=== PATIENT | female | born 2000 | race African-American/Black ===

== ENCOUNTER 2023-12-11 17:25 | Inpatient (IN) | payer OTHER ==
[2023-12-11] MEDS: ELECTROLYTE-148 SOLN 1,000 ML IV SCH (17:45)
[2023-12-11 18:16] LABS: BASO % 0.3 % (0-2.0); HEMATOCRIT 34.7 % (32.4-45.2); HEMOGLOBIN 11.6 GM/dL (10.7-15.3); LYMPH % 12.3 % (8-40); MCH 29.1 pg (25.7-33.7); MCHC 33.5 g/dl (32.0-36.0); MEAN PLT VOLUME 8.3 fl (7.5-11.1); MONO % 4.9 % (3.8-10.2); NEUT % 82.5 % (42.8-82.8); PLATELET COUNT 358 10^3/uL (134-434); RBC 3.99 M/mm3 (3.60-5.2); RDW 16.2 % (11.6-15.6); WHITE BLOOD COUNT 10.2 K/mm3 (4.0-10.0)
[2023-12-11 18:24] VITALS: BMI 38.6
[2023-12-11 18:24] LABS: INR 0.97 (0.83-1.09)
[2023-12-11 18:25] LABS: POTASSIUM 3.5 mmol/L (3.5-5.1)
[2023-12-11 18:26] LABS: ACTIVATED PTT 25.4 SECONDS (25.2-36.5)
[2023-12-11 18:28] LABS: BLOOD UREA NITROGEN 4.2 mg/dL (7-18)
[2023-12-11 18:31] LABS: CREATININE 0.7 mg/dL (0.55-1.3)
[2023-12-11] MEDS ORDERED: OXYTOCIN 20 UNITS in 0.9% NS 20 UNIT/1,000 ML INFUS.BAG IV ONE (19:11)
[2023-12-11] MEDS ORDERED: LIDOCAINE HCL 1% PRESERVATIVE FREE - 30ML VIAL ONE (19:12)
[2023-12-11 19:40] LABS: HIV INTERPRETATION NEGATIVE (NEGATIVE)
[2023-12-11] MEDS: OXYTOCIN 20 UNITS in 0.9% NS 20 UNIT/1,000 ML INFUS.BAG IV SCH (19:48)
[2023-12-11 20:09] LABS: CORD BASE EXCESS -4.2 mmol/L (0-2); CORD HCO3 22.3 mmHg (20-29); CORD PCO2 45.6 mmHg (30-78); CORD pH 7.159 (7.14-7.44); CORD pH 7.308 (7.14-7.44)
[2023-12-11] MEDS ORDERED: BENZOCAINE 28 GM HEMORRHOIDAL OINTMENT TP PRN (20:24)
[2023-12-11] MEDS ORDERED: WITCH HAZEL 50% (TUCKS) 40 PAD/JAR PAD TP PRN (20:24)
[2023-12-11] MEDS ORDERED: IBUPROFEN 600 MG TABLET (FP) PO PRN (20:24)
[2023-12-11] MEDS ORDERED: METHYLERGONOVINE MALEATE 0.2 MG/1 ML AMP IM PRN (20:24)
[2023-12-11] MEDS ORDERED: ACETAMINOPHEN 325 MG TABLET (FP) ONE (21:06)
[2023-12-11] MEDS: ACETAMINOPHEN 325 MG TABLET (FP) PO PRN (21:10)
[2023-12-12 08:03] LABS: BASO % 0.2 % (0-2.0); EOS % 0.1 % (0-4.5); HEMATOCRIT 28.7 % (32.4-45.2); HEMOGLOBIN 9.8 GM/dL (10.7-15.3); MCH 29.6 pg (25.7-33.7); MCHC 34.1 g/dl (32.0-36.0); MEAN CELL VOLUME 86.9 fl (80-96); MEAN PLT VOLUME 8.7 fl (7.5-11.1); MONO % 8.5 % (3.8-10.2); NEUT % 75.2 % (42.8-82.8); PLATELET COUNT 276 10^3/uL (134-434); RBC 3.31 M/mm3 (3.60-5.2); RDW 16.3 % (11.6-15.6); WHITE BLOOD COUNT 12.3 K/mm3 (4.0-10.0)
[2023-12-12 22:12] VITALS: RESP 18
[2023-12-13 09:15] VITALS: BP 115/74; PULSE 103; TEMP 97.8
== END 2023-12-13 13:00 | disposition home or self-care (01) | DRG 807 ==
LOC: JDEL 17:25 → JLDR 17:35 → J3W 23:20
PROVIDERS: ADMIT Obstetrics & Gynecology; ATTEND Obstetrics & Gynecology
PROC: 10907ZC Drainage of Amniotic Fluid, Therapeutic from Products of Conception, Via Natural or Artificial Opening (ICD-10-PCS; principal; 2023-12-11)
PROC: 10E0XZZ Delivery of Products of Conception, External Approach (ICD-10-PCS; 2023-12-11)
DX: O70.0 First degree perineal laceration during delivery (principal); Z37.0 Single live birth; O69.81X0 Labor and delivery complicated by cord around neck, without compression, not applicable or unspecified; Z3A.39 39 weeks gestation of pregnancy
CPT/HCPCS: 36415; 36600; 59409; 80048; 82803; 85025; 85610; 85730; 86705; 86780; 86803; 86850; 86900; 86901; 87389